=== PATIENT | female | born 1990 | race Hispanic/Latino ===

== ENCOUNTER 2017-09-22 13:49 | Emergency (ER) | payer SELFPAY | END 2017-09-22 14:24 | disposition left against medical advice (07) | LOC: EME 13:49 | DX: Z53.21 Procedure and treatment not carried out due to patient leaving prior to being seen by health care provider (principal) ==

== ENCOUNTER 2017-10-17 19:27 | Emergency (ER) | payer SELFPAY ==
[~2017-10-17] VITALS: Ht 160 cm; Wt 68.1 kg
[2017-10-17 20:28] LABS: HEMATOCRIT 35.3 % (36.0-46.0); HEMOGLOBIN 12.1 G/DL (11.9-15.5); MCH 28.7 PG (29.0-34.0); MCHC 34.3 G/DL (30.0-36.0); MCV 83.6 FL (83-99); PLATELET COUNT 263 K/uL (156-360); RBC DIS.WIDTH-SD 36.1 % (39-53); RED BLOOD COUNT 4.22 M/uL (3.80-5.20); WHITE BLOOD COUNT 7.4 K/uL (4.1-10.2)
[2017-10-17 20:36] LABS: ALBUMIN 3.7 g/dL (3.2-4.8)
[2017-10-17 20:37] LABS: CHLORIDE 106 mEq/L (99-109); POTASSIUM 4.1 mEq/L (3.7-5.4); SODIUM 137 mEq/L (136-147)
[2017-10-17 20:39] LABS: GLUCOSE 107 mg/dL (70-99); TOTAL PROTEIN 7.1 g/dL (6.4-8.3)
[2017-10-17 20:41] LABS: TOTAL BILIRUBIN 0.2 mg/dL (0.0-1.0)
[2017-10-17 20:42] LABS: ALKALINE PHOSPHATASE 206 IU/L (3-129)
[2017-10-17 20:43] LABS: CREATININE 0.6 mg/dL (0.6-1.3); GFR ESTIMATE (CALCULATED) > 59 mL/min/
[2017-10-17 20:44] LABS: AST (GOT) 22 IU/L (2-34); UREA NITROGEN (BUN) 12 mg/dL (9-23)
[2017-10-17 20:45] LABS: ALT (GPT) 35 IU/L (3-49)
[2017-10-17 20:52] LABS: QUANTITATIVE HCG 6165.6 MIU/ML
[2017-10-17 21:13] LABS: BASOPHIL (%) 0.4 % (0-1); EOSINOPHIL (%) 1.3 % (0-5); EOSINOPHIL COUNT 0.1 K/uL (0-0.3); IMMATURE GRANULOCYTE (%) 0.1 % (0.0-0.7); LYMPHOCYTE (%) 39.9 % (15-42); MONOCYTE (%) 11.2 % (3-12); MONOCYTE COUNT 0.8 K/uL (0-0.8); NEUTROPHIL (%) 47.1 % (45-76); NEUTROPHIL COUNT 3.5 K/uL (1.8-6.4)
[2017-10-17 22:42] LABS: APPEARANCE SL.HAZY ((CLEAR)); BILIRUBIN NEGATIVE; BLOOD LARGE; COLOR YELLOW ((YELLOW)); GLUCOSE (STRIP) NEGATIVE; KETONES NEGATIVE; LEUKOCYTES SMALL; NITRITE NEGATIVE; PROTEIN (STRIP) 30; SPECIFIC GRAVITY 1.018 (1.000-1.030); UROBILINOGEN 0.2 MG/DL (0.2-1.0)
[2017-10-17 22:56] LABS: HEMOGLOBIN 11.6 G/DL (11.9-15.5); MCV 83.3 FL (83-99)
[2017-10-17 23:08] LABS: BACTERIA RARE /HPF; EPITHELIAL CELLS RARE /HPF; MUCUS NONE SEEN /LPF; RED BLOOD CELLS TNTC /HPF (0-5); UCUL ADDED? YES; WHITE BLOOD CELLS 0-5 /HPF (0-5)
[2017-10-17 23:25] VITALS: BP 121/84
== END 2017-10-17 23:27 | disposition home or self-care (01) ==
LOC: EME 19:27
PROVIDERS: Emergency Medicine
DX: O03.9 Complete or unspecified spontaneous abortion without complication (principal)
CPT/HCPCS: 76801; 80053; 81003; 84702; 85014; 85018; 85025; 86900; 86901; 87086; 99281; 99284